=== PATIENT | female | born 1985 | race Caucasian/White ===

== ENCOUNTER 2017-08-18 14:49 | Inpatient (IN) | payer BC ==
[2017-08-18 15:31] LABS: ABS Basophils 0.1 10^3/ul (0-0.2); ABS Eosinophils 0 10^3/ul (0-0.6); ABS Lymphocytes 2.1 10^3/ul (1.0-4.8); ABS Monocytes 0.9 10^3/ul (0-0.8); ABS Nucleated RBC 0 10^3/ul; Eosinophil % 0 % (0-6); Hematocrit 38 % (35-47); Hemoglobin 12.4 g/dl (12.0-16.0); Lymphocyte % 13.2 % (25-47); Mean Corpuscular HGB Conc 33 g/dl (31-36); Mean Corpuscular Hemoglobin 28 pg (27-31); Mean Corpuscular Volume 83 fL (80-97); Mean Platelet Volume 9 um3 (7.4-10.4); Nucleated Red Blood Cells % 0; Platelet Count 235 10^3/ul (150-450); Red Cell Distribution Width 15 % (10.5-15); White Blood Count 16.1 10^3/ul (3.5-10.8)
[2017-08-18] MEDS ORDERED: Sodium Citrate/Citric Acid* 15 ML UDC ONE (16:18)
[2017-08-18] MEDS ORDERED: ceFOXitin 2 GM IVPREMIX* 2 GM/50 ML BAG ONE (16:18)
[2017-08-18] MEDS ORDERED: Morphine PF AMP (0.5MG/ML)* 5 MG/10 ML AMP ONE (16:48)
[2017-08-18] MEDS ORDERED: OXYTOCIN* 10 UNITS/ML 1 ML VIAL ONE ×2 (17:09→18:01)
[2017-08-18] MEDS ORDERED: fentaNYL* 50 MCG/ML 2 ML VIAL (100 MCG VIAL) IV PRN (18:06)
[2017-08-18] MEDS ORDERED: Ondansetron INJ* 2 MG/ML VIAL IV PRN (18:06)
[2017-08-18] MEDS ORDERED: Nalbuphine* 20 MG/ML 1 ML VIAL IV PRN (18:06)
[2017-08-18] MEDS ORDERED: Ketorolac INJ* 30 MG/ML 1 ML VIAL IV PRN (18:06)
[2017-08-18] MEDS ORDERED: DiMENhydriNATE IV* 50 MG/ML VIAL IV PUSH PRN (18:06)
[2017-08-18] MEDS ORDERED: Acetaminophen TAB* 325 MG PO PRN (18:06)
[2017-08-18] MEDS ORDERED: HYDROmorphone INJ* 1 MG/ML CARPUJECT SYRINGE IV PRN (18:06)
[2017-08-18] MEDS ORDERED: Naloxone* 0.4 MG/ML 1 ML VIAL IV PRN ×2 (18:06)
[2017-08-18] MEDS ORDERED: Witch Hazel PAD* JAR TOPICAL PRN (18:14)
[2017-08-18] MEDS ORDERED: Dibucaine 1% 28.35 GM TUBE PR PRN (18:14)
[2017-08-18] MEDS ORDERED: Glycerin ADULT SUPP PR PRN (18:14)
[2017-08-18] MEDS ORDERED: Oxytocin in LR* 20 UNITS/1,000 ML BAG IVPB SCH (19:00)
[2017-08-18] MEDS: Docusate CAP* 100 MG PO SCH (23:02)
[2017-08-18] MEDS: Simethicone TAB* 80 MG TAB.CHEW PO SCH (23:02)
[2017-08-19] MEDS ORDERED: oxyCODONE/Acetamin 5/325 MG* TAB PO PRN (09:01)
[2017-08-19] MEDS ORDERED: Acetaminophen TAB* 325 MG PO PRN (09:01)
[2017-08-19] MEDS: Simethicone TAB* 80 MG TAB.CHEW PO SCH ×4 (09:37→21:58)
[2017-08-19] MEDS: Docusate CAP* 100 MG PO SCH ×3 (09:38→21:58)
[2017-08-19] MEDS: Prenatal Vitamin TAB PO SCH (09:38)
[2017-08-19] MEDS: Ferrous Gluconate TAB* 324 MG TAB PO SCH (09:38)
[2017-08-19] MEDS ORDERED: Ibuprofen TAB* 600 MG ONE (10:58)
[2017-08-19] MEDS: Ibuprofen TAB* 600 MG PO PRN ×2 (11:05→17:02)
[2017-08-19 12:09] LABS: ABS Basophils 0.1 10^3/ul (0-0.2); ABS Eosinophils 0 10^3/ul (0-0.6); ABS Lymphocytes 1.6 10^3/ul (1.0-4.8); ABS Monocytes 1.1 10^3/ul (0-0.8); ABS Nucleated RBC 0 10^3/ul; Eosinophil % 0.1 % (0-6); Hematocrit 35 % (35-47); Hemoglobin 11.7 g/dl (12.0-16.0); Lymphocyte % 10.2 % (25-47); Mean Corpuscular HGB Conc 33 g/dl (31-36); Mean Corpuscular Hemoglobin 28 pg (27-31); Mean Corpuscular Volume 84 fL (80-97); Mean Platelet Volume 9 um3 (7.4-10.4); Nucleated Red Blood Cells % 0; Platelet Count 220 10^3/ul (150-450); Red Blood Count 4.24 10^6/ul (4.0-5.4); Red Cell Distribution Width 15 % (10.5-15); White Blood Count 15.8 10^3/ul (3.5-10.8)
[2017-08-19] MEDS: oxyCODONE/Acetamin 5/325 MG* TAB PO PRN ×2 (14:41→21:58)
--- NOTE | 2017-08-19 16:39 | OP ---
DATE OF OPERATION: 08/18/17 - ROOM #103 DATE OF : 81 SURGEON: Carla Chance MD SAILOR: Kraig Mtz CNM ANESTHESIOLOGIST: Yolande Gardiner MD ANESTHESIA: Spinal. PRE-OP DIAGNOSIS: 40 and 5/7th weeks, category II heart tracing, prolonged ruptured membranes. POST-OP DIAGNOSIS: 40 and 5/7th weeks, category II heart tracing, delivered. OPERATIVE PROCEDURE: Primary low transverse section. ESTIMATED BLOOD LOSS: 600 cc. SPECIMEN: None. URINE OUTPUT: 250 cc of concentrated yellow urine. FLUIDS: 2100 cc of crystalloid. FINDINGS: Revealed a vertex male infant. Apgars 9 at 1 minute and 9 at 5 minutes. Weight 7 pounds 5 ounces. No nuchal cord. No meconium. Direct OP. Normal- appearing tubes and ovaries. Normal-appearing placenta. Three-vessel cord manually intact. COMPLICATIONS: None apparent. DISPOSITION: Stable to recovery room. DESCRIPTION OF PROCEDURE: The patient was placed in dorsal lithotomy position. The abdomen was prepped and draped in a sterile standard fashion. The patient was identified with universal protocol for correct procedure, position, and patient. After testing anesthesia to appropriate level, an incision was made 2 fingerbreadths above the pubic symphysis with a scalpel, this was carried down to the fascia. Fascia was scored and extended laterally and superiorly using [place] scissors, sharply and bluntly from the rectus muscle, both superiorly and inferiorly using [place] scissors. Peritoneum was then entered bluntly. Bladder blade was inserted. Lower uterine segment was identified and tented up with an Allis. Incision was made with a scalpel, this was carried down through to membranes. The uterine incision was extended laterally and superiorly using bandage scissors. was found to be direct OP. Vacuum applied after failed attempt x1. Head was delivered with the vacuum-assisted delivery. No nuchal cord was noted. No meconium was noted. Anterior and posterior shoulder delivered. Cord was allowed to pulse with baby on the operative field for greater than 30 seconds. Cord was then clamped and cut and infant was handed off to awaiting banking representative. Appropriate cord blood was obtained. Placenta was then manually extracted and noted to be intact 3-vessel cord. Uterus was exteriorized. Uterine cavity was explored, noted to be free of any membranes or placental tissue. Uterine incision itself was reapproximated in 2 layers, first layer running locked 0 Vicryl, second layer running imbricated 0 Vicryl. Hemostasis, [id number] suture was placed midline for hemostasis at the hysterotomy site. Tubes and ovaries noted to have a normal appearance. Uterus was returned intraabdominally. Colic gutters were lavaged. Hemostasis was assured at the hysterotomy site. The peritoneum was then reapproximated using 3-0 Vicryl in a running fashion. Subfascial area was visualized and noted to be hemostatic and the fascia was reapproximated using 0 Vicryl x2 in a running fashion. Subcu was lavaged. Hemostasis was assured with Bovie coagulation. The skin was reapproximated using 4-0 Monocryl in a subcuticular fashion. Mastisol and Steri-Strips were applied. All sponge , needle, instrument, and blade counts were correct throughout the case. The patient tolerated the procedure well. The patient went to recovery room in stable condition. [id number]/[facility] #: [id number] PAULA
--- NOTE | 2017-08-19 22:37 | PTEDU ---
Patient Name: FINA TOLEDO FINA TOLEDO selected video: Follow Me Mum: [facility] to view on 8 at 10:36:47 PM [id number]
[2017-08-20] MEDS: Ferrous Gluconate TAB* 324 MG TAB PO SCH ×2 (00:16→09:48)
[2017-08-20 07:59] VITALS: BP 118/64
[2017-08-20] MEDS: Ibuprofen TAB* 600 MG PO PRN ×2 (08:18→14:08)
[2017-08-20] MEDS: Docusate CAP* 100 MG PO SCH ×2 (09:47→14:09)
[2017-08-20] MEDS: Prenatal Vitamin TAB PO SCH (09:47)
[2017-08-20] MEDS: Simethicone TAB* 80 MG TAB.CHEW PO SCH ×2 (09:47→14:10)
== END 2017-08-20 16:08 | disposition home or self-care (01) | DRG 540 ==
LOC: MCHOBOUT 14:49 → MCHOB 15:02
PROVIDERS: ADMIT Obstetrics & Gynecology; ATTEND Obstetrics & Gynecology
PROC: 10D00Z1 Extraction of Products of Conception, Low, Open Approach (ICD-10-PCS; principal; 2017-08-18 16:51)
DX: O76 Abnormality in fetal heart rate and rhythm complicating labor and delivery (principal); O42.12 Full-term premature rupture of membranes, onset of labor more than 24 hours following rupture; O48.0 Post-term pregnancy; Z3A.40 40 weeks gestation of pregnancy; Z37.0 Single live birth
CPT/HCPCS: 36415; 85025; 86850; 86900; 86901; A9270-GY; J0694; J1885; J2590